=== PATIENT | male | born 1945 | race African-American/Black ===

== ENCOUNTER → 2018-06-27 | Outpatient (CLI) | payer OTHER ==
[~2018-06-27] MED LIST: ASPI-696; ENAL20TA; HYDR1POW19; INSU100C5; INSU100I29; METO-93; ROSU5TAB; TAMS-11
== END | disposition home or self-care (01) ==
LOC: CFH 08:06
PROVIDERS: ATTEND Nurse Practitioner Family
DX: M62.551 Muscle wasting and atrophy, not elsewhere classified, right thigh (principal); M62.9 Disorder of muscle, unspecified

== ENCOUNTER → 2018-08-30 | Outpatient (CLI) | payer OTHER | END | disposition home or self-care (01) | LOC: CVU 07:34 | PROVIDERS: ATTEND Internal Medicine Cardiovascular Disease | DX: I65.23 Occlusion and stenosis of bilateral carotid arteries (principal); I65.02 Occlusion and stenosis of left vertebral artery; E11.51 Type 2 diabetes mellitus with diabetic peripheral angiopathy without gangrene; I10 Essential (primary) hypertension | CPT/HCPCS: 93880 ==